=== PATIENT | female | born 1970 | race Caucasian/White ===

== ENCOUNTER 2018-04-06 20:04 | Emergency (ER) | payer OTHER ==
[~2018-04-06] VITALS: Ht 154.9 cm; Wt 68.0 kg
[2018-04-06 20:42] VITALS: BP 124/74
== END 2018-04-07 01:43 | disposition left against medical advice (07) ==
LOC: ER 20:04
DX: M54.9 Dorsalgia, unspecified (principal); Z53.21 Procedure and treatment not carried out due to patient leaving prior to being seen by health care provider
CPT/HCPCS: 71045; 72070; 73000; 73010; 81025